=== PATIENT | male | born 1955 | race Caucasian/White ===

== ENCOUNTER 2019-02-12 13:18 | Inpatient (IN) ==
[2019-02-12] MEDS ORDERED: MoRPHine SULFATE 4 MG/ML 1 ML CARP\\VIAL IV PRN (13:39)
[2019-02-12] MEDS ORDERED: ONDANSETRON INJ 2 MG/ML 2 ML VIAL IV STA (13:39)
[2019-02-12] MEDS ORDERED: SODIUM CHLORIDE 0.9% 1000ML 1,000 ML IV SCH (13:45)
--- NOTE | 2019-02-12 13:57 | XRay Report ---
XR chest 1V portable CLINICAL HISTORY: Abdominal pain. COMPARISON STUDY: No previous studies for comparison. FINDINGS: There is mild elevation of the right hemidiaphragm. There is no consolidation or evidence f or pulmonary edema. Cardiac size is normal. Mediastinal contours are normal. Pulmonary vascularity is normal. IMPRESSION: No acute cardiopulmonary findings. Electronically signed by: Tenzin Orantes M.D. 02/12/2019 1:56 PM
[2019-02-12 13:58] LABS: Basophils # (auto) 0.06 K/uL (0-0.2); Basophils % (auto) 0.7 %; Eosinophils % (auto) 4.3 %; Hematocrit (blood only) 40.8 % (42-52); Immature Granulocytes # (auto) 0.01 K/uL (0.00-0.02); Immature Granulocytes % (auto) 0.1 %; Lymphocytes # (auto) 2.68 K/uL (1.2-3.4); Lymphocytes % (auto) 29.1 %; Mean Corpuscular Hgb Conc 36.8 g/dL (32-36); Mean Corpuscular Volume 81.4 fL (80-100); Monocytes # (auto) 0.64 K/uL (0.11-0.59); Neutrophils # (auto) 5.41 K/uL (1.4-6.5); Neutrophils % (auto) 58.8 %; Platelet Count 209 K/uL (130-400); RDW Coefficient of Variation 13.4 % (11.5-14.5); RDW Standard Deviation 39.8 fL (36.4-46.3); Red Blood Count 5.01 M/uL (4.7-6.1)
[2019-02-12 14:12] LABS: iSTAT Hemoglobin 14.3 g/dl (14.0-18.0); iSTAT Ionized Calcium 1.11 mmol/l (1.12-1.32); iSTAT Potassium 2.5 mEq/L (3.3-5.0)
[2019-02-12 14:16] LABS: Albumin Level 4.2 gm/dl (3.4-5.0); BUN Creatinine Ratio 15.5 (10-20); Calcium 9.1 mg/dl (8.5-10.1); Creatinine Clr Calc Pharmacy 80.1 ml/min; Est GFR (African American) 84.8; Est GFR (Non-African American) 73.2; Potassium 2.6 mmol/L (3.5-5.1)
[2019-02-12 14:19] LABS: Albumin Globulin Ratio 1.2 (0.9-2); Bilirubin,Total 0.7 mg/dl (0.2-1); Globulin 3.4 gm/dl (2.5-4.0); Total Protein 7.6 gm/dl (6.4-8.2)
[2019-02-12] MEDS ORDERED: IOVERSOL 100ml IV PRN (14:31)
--- NOTE | 2019-02-12 14:46 | CT Scan Report ---
ABDOMEN AND PELVIS CT WITH IV AND ORAL CONTRAST CT DOSE: 475.59 mGy.cm HISTORY: Acute lower abdominal pain lower pain, recent prostate biposy TECHNIQUE: Multiaxial CT images of the abdomen and pelvis were performed following the use of intrave nous and oral contrast. A dose lowering technique was utilized adhering to the principles of ALARA. COMPARISON STUDY: None. FINDINGS: The lung bases are generally clear. Subcentimeter calcified granuloma of the right middle lobe. No pn eumatosis or pneumoperitoneum. The imaged inferior cardiac chambers are unremarkable. The liver, sple en, gallbladder, pancreas and adrenal glands are unremarkable. No biliary ductal dilation. Patency of the hepatic and portal veins. Kidneys and ureters are unremarkable. Mild wall thickening with partial distention of the urinary elly dder. Prostamegaly. Aorta and IVC are unremarkable. There is no adenopathy. Small hiatal hernia. No b owel obstruction. There is partial distention with wall thickening noted throughout the majority of t he colon. No significant colonic inflammatory stranding. Multiple nondilated fluid-filled loops of sm all bowel. The appendix measures the upper limits of normal at 7 mm and is also fluid-filled without stranding inflammatory change. Minimal nonspecific ill-defined stranding about the left dependent pel vis, image 400 series 3. Soft tissues are unremarkable. Bones appear to be intact. Moderate disc space narrowing at L4-L5. Tra nsitional lumbosacral anatomy with pseudoarticulation of the left L5 transverse process and left sacr al base. There are a few scattered subcentimeter sclerotic foci noted about the pelvis which may refl ect bone islands. IMPRESSION: 1. No bowel obstruction or pneumoperitoneum. 2. Wall thickening throughout the majority of the colon, notably extending from the hepatic flexure t hrough the rectum may be secondary to partial distention versus a nonspecific colitis. Correlate clin ically. 3. Fluid-filled nondilated loops of small bowel may be physiologic or reflect a mild enteritis. Addit ionally, the appendix is fluid-filled measuring within the upper limits of normal without associated periappendiceal stranding to suggest acute inflammation. Correlate clinically. 4. Prostamegaly with findings suggestive of chronic bladder outlet obstruction. 5. Small hiatal hernia. Electronically signed by: Alberto Salamanca M.D. 02/12/2019 2:45 PM
[2019-02-12] MEDS ORDERED: POTASSIUM CHLORIDE 10 MEQ TABCR PO STA ×3 (15:44→19:41)
[2019-02-12 15:48] LABS: Appearance Urine Clear (Clear); Bacteria Urine Automated Negative (Negative); Bilirubin Urine Negative (Negative); Blood Urine 3+ (Negative); Cast Urine Automated 0 /lpf (0-5); Color Urine Yellow; Epithelial Cell Urine Auto 0-5 /lpf (0-5); Glucose Urine UA Negative (Negative); Ketones Urine Negative (Negative); Leukocyte Esterase Urine Trace (Negative); Nitrite Urine Negative (Negative); Protein Urine Negative (Negative); Specific Gravity Urine 1.034 (1.000-1.030); Urobilinogen Urine Negative (Negative); pH Urine 5.5 (4.5-7.5)
[2019-02-12 16:01] LABS: Magnesium 2.2 mg/dl (1.8-2.4)
[2019-02-12] MEDS: POTASSIUM CHLORIDE / WTR 10 MEQ/100 ML PLCT IV SCH ×2 (16:16→17:35)
--- NOTE | 2019-02-12 16:32 | Gastrointestinal Consultation ---
Date of Consultation February 12, 2019 Assessment & Plan (1) Rectal bleedin63 year old male with recent rectal biopsy for elevated PSA who presents through the ED for lower abdominal pain, cramping, diarrhea and BRBPR. He denies personal or family history of IBD/GI malignancy. He is afebrile, without leukocytosis, stable HGB. DDX discussed: infectious colitis, ischemic colitis, IBD vs other - Consider admission for observation - IVF hydration - Check stool culture - Check c.diff - Would recommend AGAINST empiric ABX until c.diff results - Consider bladder scan, nails - Not a candidate for antispasmodics given urinary hx - Trend H&H - Monitor output No current plan for endoscopy. Pt would like to be discharged home as soon as clinically stable. He should have a outpatient colonoscopy with his regular GI in [place]. Thank you for allowing [facility] Please call with any acute changes, questions or concerns. Please see addendum below with additional recommendation from my supervising physician. Present on Admission?: Yes Supervising Physician Co-Signing Physician Notes I have seen and examined the patient and discussed the management with KEVIN Lara. 63 yo male, recent prostate biopsy 1 week ago with antibiotics prior to procedure, visiting the area for a golf outing. Did not feel well- weak, lightheaded, bloody bowel movement x 1, always has chronic diarrhea came to the ER per his friend. No fevers, recent abx use per above, recently eating meatloaf - thinks it was cooked. No reports of ibd personally or per family history. Gets colons every 3 years for polyps. labs reviewed- wbc, hgb stable, K low. CT A/P reviewed- thickening of the colon from hepatic flexure to rectum, prostamegaly with chronic bladder outlet obstruction. Diff - infectious colitis, less likely ischemic given normal vessels seen on contrast ct, less likely ibd given prior colons and no personal history of this, IV fluids C diff, stool culture Hold on empiric abx until c diff is negative Prn immodium Replete electrolytes CLD Outpatient c-scope through normal GI provider Likely admission for 24 hours obs for IV hydration and rule out acute infection. Patient likely wants to go home tomorrow as he has to go back to [place]. Will see tomorrow to assess response to therapy. History of Present Illness Reason for Consultation: rectal bleed, recent prostate bx Requesting Physician: Saad Attending Physician: Saad History of Present Illness 63 year old male here from out of town for a golf tournament who presented through the ED for evaluation of abdominal cramping, bloody diarrhea. Pt was seen and evaluated, chart reviewed. Notes he had recent prostate biopsy due to elevated PSA. He notes he was on three days of ABX prior to bx and continued for a total of five days. Unsure of name of ABX. Last dose was two days ago. Today, developed lower abd cramping, pressure and frequent loose stools. Associated with BRBPR. No clots. No melena. No lightheadedness or dizziness. No fever, chills, CP, SOB. He had a colonoscopy about two years ago w/ multiple polyps. Due next year No personal history of IBD or colon CA No family history of IBD or colon CA CT: No bowel obstruction or pneumoperitoneum.Wall thickening throughout the majority of the colon, notably extending from the hepatic flexure through the rectum may be secondary to partial distention versus a nonspecific colitis. Correlate clinically.Fluid-filled nondilated loops of small bowel may be physiologic or reflect a mild enteritis. Additionally, the appendix is fluid- filled measuring within the upper limits of normal without associated periappendiceal stranding to suggest acute inflammation. Correlate clinically. Prostamegaly with findings suggestive of chronic bladder outlet obstruction. Small hiatal hernia. Allergies Allergy/AdvReac Type Severity Reaction Status Date / Time No Known Allergies Allergy Unverified 02/12/19 15:46 Home Medications Home Medications Medication Instructions Recorded Confirmed Type hydrochlorothiazide 25 mg PO QAM 02/12/19 02/12/19 History levofloxacin 500 mg PO QAM 02/12/19 02/12/19 History lisinopril 20 mg PO QAM 02/12/19 02/12/19 History simvastatin 20 mg PO HS 02/12/19 02/12/19 History Patient History Social History Feels Safe at Home: Yes Smoking Status: Never smoker Review of Systems Constitutional: no fever, no chills and no fatigue Respiratory: no cough, no dyspnea and no dyspnea on exertion Cardiovascular: no chest pain, no radiating jaw, neck or arm pain and no dyspnea on exertion Gastrointestinal: + abdominal pain, + change in bowel habits, + diarrhea/loose stools and + blood in stools; no belching, no early satiety, no hematemesis, no dysphagia, no cramping and no melena Physical Exam Constitutional: well developed and well nourished; no acute distress Neck: trachea midline Respiratory: normal respiratory effort Cardiovascular: RRR, no murmur, no edema Gastrointestinal (Abdomen): Inspection/Auscultation: normal bowel sounds Percussion/Palpation: + abdomen tender (generalized) and abdomen soft; no guarding, abdomen not rigid, no abdominal mass and no ascites Skin: no rashes, warm and dry Results & Data Vital Signs (Past 12 Hours) Vital Signs Temp Pulse Resp BP Pulse Ox 02/12/19 13:54 99 02/12/19 13:24 36.6 C 63 16 190/61 H 99 Laboratory Results 02/12/19 02/12/19 02/12/19 Range/Units 15:20 13:58 13:44 WBC (4.8-10.8) K/uL RBC (4.7-6.1) M/uL Hgb (14.0-18.0) g/dL POC Hgb 14.3 (14.0-18.0) g/dl Hct (42-52) % POC Hct 42 (42-52) % MCV (80-100) fL MCH (25-34) pg MCHC (32-36) g/dL RDW Std Deviation (36.4-46.3) fL RDW Coeff of Aminah (11.5-14.5) % Plt Count (130-400) K/uL MPV (7.4-10.4) fL Immature Gran % (Auto) % Neut % (Auto) % Lymph % (Auto) % Glades % (Auto) % Eos % (Auto) % Baso % (Auto) % Immature Gran # (Auto) (0.00-0.02) K/uL Neut # (Auto) (1.4-6.5) K/uL Lymph # (Auto) (1.2-3.4) K/uL Glades # (Auto) (0.11-0.59) K/uL Eos # (Auto) (0-0.5) K/uL Baso # (Auto) (0-0.2) K/uL PT (9.0-12.0) Seconds INR (0.9-1.1) POC Sodium 140 (135-144) mEq/L Sodium (136-145) mmol/L POC Potassium 2.5 L* (3.3-5.0) mEq/L Potassium (3.5-5.1) mmol/L POC Chloride 99 L (101-112) mEq/L Chloride (98-107) mmol/L Carbon Dioxide (21-32) mmol/L POC Total CO2 22 L (24-31) mEq/l Anion Gap (3-11) POC Anion Gap 23.0 (16-25) mmol/L POC BUN 17 (7-18) mg/dl BUN (7-18) mg/dl Creatinine (0.6-1.4) mg/dl POC Creatinine 1.0 (0.6-1.3) mg/dl Est Cr Clr Drug Dosing ml/min Est GFR ( Amer) Est GFR (Non-Af Amer) BUN/Creatinine Ratio (10-20) Glucose (70-99) mg/dl POC Glucose (other) 120 H (70-99) mg/dl Calcium (8.5-10.1) mg/dl POC Ioniz Calcium Guy 1.11 L (1.12-1.32) mmol/l Magnesium Cancelled (1.8-2.4) mg/dl Total Bilirubin (0.2-1) mg/dl AST (15-37) U/L ALT (12-78) U/L Alkaline Phosphatase (45-117) U/L Total Protein (6.4-8.2) gm/dl Albumin (3.4-5.0) gm/dl Globulin (2.5-4.0) gm/dl Albumin/Globulin Ratio (0.9-2) Lipase (73-393) U/L Urine Color Yellow Urine Appearance Clear (Clear) Urine pH 5.5 (4.5-7.5) Ur Specific Lafe 1.034 H (1.000-1.030) Urine Protein Negative (Negative) Urine Glucose (UA) Negative (Negative) Urine Ketones Negative (Negative) Urine Blood 3+ H (Negative) Urine Nitrite Negative (Negative) Urine Bilirubin Negative (Negative) Urine Urobilinogen Negative (Negative) Ur Leukocyte Esterase Trace H (Negative) Urine WBC (Auto) 1-5 (0-5) /hpf Urine RBC (Auto) 5-10 H (0-4) /hpf U Hyaline Cast (Auto) 0 (0-5) /lpf U Epithel Cells (Auto) 0-5 (0-5) /lpf Urine Bacteria (Auto) Negative (Negative) 02/12/19 02/12/19 02/12/19 Range/Units 13:44 13:44 13:44 WBC 9.20 (4.8-10.8) K/uL RBC 5.01 (4.7-6.1) M/uL Hgb 15.0 (14.0-18.0) g/dL POC Hgb (14.0-18.0) g/dl Hct 40.8 L (42-52) % POC Hct (42-52) % MCV 81.4 (80-100) fL MCH 29.9 (25-34) pg MCHC 36.8 H (32-36) g/dL RDW Std Deviation 39.8 (36.4-46.3) fL RDW Coeff of Aminah 13.4 (11.5-14.5) % Plt Count 209 (130-400) K/uL MPV 10.0 (7.4-10.4) fL Immature Gran % (Auto) 0.1 % Neut % (Auto) 58.8 % Lymph % (Auto) 29.1 % Glades % (Auto) 7.0 % Eos % (Auto) 4.3 % Baso % (Auto) 0.7 % Immature Gran # (Auto) 0.01 (0.00-0.02) K/uL Neut # (Auto) 5.41 (1.4-6.5) K/uL Lymph # (Auto) 2.68 (1.2-3.4) K/uL Glades # (Auto) 0.64 H (0.11-0.59) K/uL Eos # (Auto) 0.40 (0-0.5) K/uL Baso # (Auto) 0.06 (0-0.2) K/uL PT 10.0 (9.0-12.0) Seconds INR 1.0 (0.9-1.1) POC Sodium (135-144) mEq/L Sodium 138 (136-145) mmol/L POC Potassium (3.3-5.0) mEq/L Potassium 2.6 L (3.5-5.1) mmol/L POC Chloride (101-112) mEq/L Chloride 103 (98-107) mmol/L Carbon Dioxide 27 (21-32) mmol/L POC Total CO2 (24-31) mEq/l Anion Gap 8.0 (3-11) POC Anion Gap (16-25) mmol/L POC BUN (7-18) mg/dl BUN 17 (7-18) mg/dl Creatinine 1.08 (0.6-1.4) mg/dl POC Creatinine (0.6-1.3) mg/dl Est Cr Clr Drug Dosing 80.1 ml/min Est GFR ( Amer) 84.8 Est GFR (Non-Af Amer) 73.2 BUN/Creatinine Ratio 15.5 (10-20) Glucose 115 H (70-99) mg/dl POC Glucose (other) (70-99) mg/dl Calcium 9.1 (8.5-10.1) mg/dl POC Ioniz Calcium Guy (1.12-1.32) mmol/l Magnesium 2.2 (1.8-2.4) mg/dl Total Bilirubin 0.7 (0.2-1) mg/dl AST 27 (15-37) U/L ALT 43 (12-78) U/L Alkaline Phosphatase 66 (45-117) U/L Total Protein 7.6 (6.4-8.2) gm/dl Albumin 4.2 (3.4-5.0) gm/dl Globulin 3.4 (2.5-4.0) gm/dl Albumin/Globulin Ratio 1.2 (0.9-2) Lipase 271 (73-393) U/L Urine Color Urine Appearance (Clear) Urine pH (4.5-7.5) Ur Specific Lafe (1.000-1.030) Urine Protein (Negative) Urine Glucose (UA) (Negative) Urine Ketones (Negative) Urine Blood (Negative) Urine Nitrite (Negative) Urine Bilirubin (Negative) Urine Urobilinogen (Negative) Ur Leukocyte Esterase (Negative) Urine WBC (Auto) (0-5) /hpf Urine RBC (Auto) (0-4) /hpf U Hyaline Cast (Auto) (0-5) /lpf U Epithel Cells (Auto) (0-5) /lpf Urine Bacteria (Auto) (Negative)
--- NOTE | 2019-02-12 16:32 | Emergency Department Note ---
Entered by Kenneth Briones acting as a scribe for Trey Nash DO History of Present Illness General Chief complaint: Abdominal Pain Stated complaint: SEVERE CRAMPS,ABD PAIN,DIZZY,NAUSEA,GRAYSON Time Seen by Provider: 02/12/19 13:29 Source: patient History of Present Illness Onset (ago): hour(s) (1.5) Location: abdomen Pain Consistency: + other (persistent) Quality: + other (cramping) Relieved By: + other (bowel movement) Associated symptoms: + other (nausea); no chest pain and no shortness of breath The patient is a 63 year old male who presents to the Emergency Room with complaints of persistent abdominal cramping beginning about 1.5 hours ago. The patient reports that his symptoms began in the lower abdomen and spread to the upper abdomen, and his pain is not worse on either side. He notes that he is still experiencing pain, but it was improved after having a bowel movement in the ER. He states that both of his hands also became clammy, his face felt flushed, and he became nauseous. He denies any chest pain, back pain, shortness of breath, or history of these symptoms. He states that he takes medications for hypertension and HLD. He states that he had a prostate biopsy one week ago for elevated PSA, and he does not know the results. He reports a history of polyps but not diverticulitis/diverticulosis. He notes that he is currently visiting from [place]. He denies smoking or alcohol use. He has not had any other abdominal surgeries. Home Medications Home Medications Medication Instructions Recorded Confirmed Type hydrochlorothiazide 25 mg PO QAM 02/12/19 02/12/19 History levofloxacin 500 mg PO QAM 02/12/19 02/12/19 History lisinopril 20 mg PO QAM 02/12/19 02/12/19 History simvastatin 20 mg PO HS 02/12/19 02/12/19 History Allergies Allergy/AdvReac Type Severity Reaction Status Date / Time No Known Allergies Allergy Unverified 02/12/19 15:46 Past Med/Surg History Medical History Hypokalemia Enlarged prostate History of tobacco use History of wisdom tooth extraction Nephrolithiasis HLD (hyperlipidemia) Hypertension GI bleed Colitis Rectal bleeding Family History Aunt Colorectal cancer Other Dyslipidemia Hypertension Social History Preferred Language: Estonian Communication Ability: Effective Flight Control Manager Required: No Beliefs That Will Affect Care: None marital status: Current Living Situation: Spouse current occupational status: employed current occupation: Construction Other Information That Helps Us Care for You: No Feels Safe at Home: Yes Smoking Status: Former smoker Do You Dip or Chew Tobacco: No Second Hand Expos ure: No Tobacco Cessation Education Requested by Patient: No Hx Alcohol Use: No Hx Substance Use: No Review of Systems See HPI for pertinent positives & negatives. and A total of 10 systems reviewed and were otherwise negative Physical Exam Vital Signs Vital Signs - 24 hr 02/12/19 13:24 02/12/19 13:54 02/12/19 16:42 Temperature 36.6 C Temperature Source Oral Sepsis Recent Fever Within 48 Hours No Sepsis New/Unexplained Change in Mental Status No Sepsis Action Taken by Nursing No Action Required Pulse Rate 63 Pulse Rate [Left] 53 L Respiratory Rate 16 20 Blood Pressure 190/61 H Blood Pressure [Left Arm] 173/75 H Blood Pressure Mean 104 Blood Pressure Mean [Left Arm] 107 Pulse Oximetry 99 99 100 Oxygen Delivery Method Room Air Room Air GENERAL: Patient is awake and alert. He is very anxious and uncomfortable appearing. EYES: The conjunctivae are clear. The pupils are round and reactive. EARS, NOSE, MOUTH AND THROAT: The nose is without any evidence of any deformity. Mucous membranes are moist.Tongue is midline NECK: The neck is nontender and supple. RESPIRATORY: Normal respiratory effort is noted. There is no evidence of wheezing rhonchi or rales to auscultation. CARDIOVASCULAR: Regular rate and rhythm noted. There no murmurs rubs or gallops normal S1 normal S2 GASTROINTESTINAL: The abdomen is mildly distended and diffusely tender. There is guarding in both lower quadrants. MUSCULOSKELETAL/EXTREMITIES: There is no evidence of gross deformity. Full range of motion is noted in the hips and shoulders. SKIN: There is no obvious evidence of any rash. There are no petechiae, pallor or cyanosis noted. NEUROLOGIC: Patient is awake alert and oriented x3. Strength is symmetric. Patellar reflexes are 2+ bilaterally. Course 1338: The patient was evaluated in room B5. A complete history and physical examination were performed. 1550: I updated the patient on current findings. 1614: I consulted [facility]. 1622: I consulted Dr. Berry [facility] Hospitalist. The patient will be reevaluated for hospitalization. Administered Medications Lactated Ringer's (Lr) 1,000 mls @ 125 mls/hr IV .Q8H JORDAN Stop: 03/14/19 18:01 Last Admin: 02/12/19 18:59 Dose: 125 mls/hr Documented by: [id number] Ioversol (Optiray 320 100ml) 94 ml IV ONCE PRN PRN Reason: Interaction Checking Stop: 02/16/19 14:30 Last Admin: 02/12/19 14:32 Dose: 94 ml Documented by: [id number] Discontinued Medications Sodium Chloride (Nss 1000ml) 1,000 mls @ 999 mls/hr IV .Q1H1M JORDAN Stop: 02/12/19 14:45 Last Infusion: 02/12/19 14:52 Dose: 0 mls/hr Documented by: [id number] Admin: 02/12/19 13:49 Dose: 999 mls/hr Documented by: [id number] Potassium Chloride (K Patric / Wtr) 10 meq in 100 mls @ 100 mls/hr IV Q1H JORDAN Stop: 02/12/19 17:44 Last Infusion: 02/12/19 19:00 Dose: 0 mls/hr Documented by: [id number] Admin: 02/12/19 17:35 Dose: 100 mls/hr Documented by: [id number] Infusion: 02/12/19 17:16 Dose: 0 mls/hr Documented by: [id number] Admin: 02/12/19 16:16 Dose: 100 mls/hr Documented by: [id number] Ondansetron HCl (Zofran) 4 mg IV NOW STA Stop: 02/12/19 13:40 Last Admin: 02/12/19 13:49 Dose: 4 mg Documented by: [id number] Potassium Chloride (Klor-Con M10) 20 meq PO NOW STA Stop: 02/12/19 15:45 Last Admin: 02/12/19 16:16 Dose: 20 meq Documented by: [id number] Medical Decision Making Differential Diagnosis Differential diagnosis includes: appendicitis, diverticulitis, PUD, biliary pathology, UTI, pancreatitis, obstruction, mesenteric ischemia, aortic pathology, infections, inflammatory bowel disease, renal colic, as well as others were entertained. Medical Records Attestation: I reviewed the patient's medical records. Home Medications Current Medication List: was personally reviewed by me Laboratory Data Attestation: I reviewed the patient's lab results. Result diagrams: 02/12/19 13:44 02/12/19 13:44 Lab Results 02/12/19 02/12/19 02/12/19 Range/Units 13:44 13:44 13:44 WBC 9.20 (4.8-10.8) K/uL RBC 5.01 (4.7-6.1) M/uL Hgb 15.0 (14.0-18.0) g/dL POC Hgb (14.0-18.0) g/dl Hct 40.8 L (42-52) % POC Hct (42-52) % MCV 81.4 (80-100) fL MCH 29.9 (25-34) pg MCHC 36.8 H (32-36) g/dL RDW Std Deviation 39.8 (36.4-46.3) fL RDW Coeff of Aminah 13.4 (11.5-14.5) % Plt Count 209 (130-400) K/uL MPV 10.0 (7.4-10.4) fL Immature Gran % (Auto) 0.1 % Neut % (Auto) 58.8 % Lymph % (Auto) 29.1 % [place] % (Auto) 7.0 % Eos % (Auto) 4.3 % Baso % (Auto) 0.7 % Immature Gran # (Auto) 0.01 (0.00-0.02) K/uL Neut # (Auto) 5.41 (1.4-6.5) K/uL Lymph # (Auto) 2.68 (1.2-3.4) K/uL [place] # (Auto) 0.64 H (0.11-0.59) K/uL Eos # (Auto) 0.40 (0-0.5) K/uL Baso # (Auto) 0.06 (0-0.2) K/uL PT 10.0 (9.0-12.0) Seconds INR 1.0 (0.9-1.1) POC Sodium (135-144) mEq/L Sodium 138 (136-145) mmol/L POC Potassium (3.3-5.0) mEq/L Potassium 2.6 L (3.5-5.1) mmol/L POC Chloride (101-112) mEq/L Chloride 103 (98-107) mmol/L Carbon Dioxide 27 (21-32) mmol/L POC Total CO2 (24-31) mEq/l Anion Gap 8.0 (3-11) POC Anion Gap (16-25) mmol/L POC BUN (7-18) mg/dl BUN 17 (7-18) mg/dl Creatinine 1.08 (0.6-1.4) mg/dl POC Creatinine (0.6-1.3) mg/dl Est Cr Clr Drug Dosing 80.1 ml/min Est GFR ( Amer) 84.8 Est GFR (Non-Af Amer) 73.2 BUN/Creatinine Ratio 15.5 (10-20) Glucose 115 H (70-99) mg/dl POC Glucose (other) (70-99) mg/dl Calcium 9.1 (8.5-10.1) mg/dl POC Ioniz Calcium Guy (1.12-1.32) mmol/l Magnesium 2.2 (1.8-2.4) mg/dl Total Bilirubin 0.7 (0.2-1) mg/dl AST 27 (15-37) U/L ALT 43 (12-78) U/L Alkaline Phosphatase 66 (45-117) U/L Total Protein 7.6 (6.4-8.2) gm/dl Albumin 4.2 (3.4-5.0) gm/dl Globulin 3.4 (2.5-4.0) gm/dl Albumin/Globulin Ratio 1.2 (0.9-2) Lipase 271 (73-393) U/L Urine Color Urine Appearance (Clear) Urine pH (4.5-7.5) Ur Specific [place] (1.000-1.030) Urine Protein (Negative) Urine Glucose (UA) (Negative) Urine Ketones (Negative) Urine Blood (Negative) Urine Nitrite (Negative) Urine Bilirubin (Negative) Urine Urobilinogen (Negative) Ur Leukocyte Esterase (Negative) Urine WBC (Auto) (0-5) /hpf Urine RBC (Auto) (0-4) /hpf U Hyaline Cast (Auto) (0-5) /lpf U Epithel Cells (Auto) (0-5) /lpf Urine Bacteria (Auto) (Negative) Stl C. diff Tox B Gene (Neg) 02/12/19 02/12/19 02/12/19 Range/Units 13:44 13:58 15:20 WBC (4.8-10.8) K/uL RBC (4.7-6.1) M/uL Hgb (14.0-18.0) g/dL POC Hgb 14.3 (14.0-18.0) g/dl Hct (42-52) % POC Hct 42 (42-52) % MCV (80-100) fL MCH (25-34) pg MCHC (32-36) g/dL RDW Std Deviation (36.4-46.3) fL RDW Coeff of Aminah (11.5-14.5) % Plt Count (130-400) K/uL MPV (7.4-10.4) fL Immature Gran % (Auto) % Neut % (Auto) % Lymph % (Auto) % [place] % (Auto) % Eos % (Auto) % Baso % (Auto) % Immature Gran # (Auto) (0.00-0.02) K/uL Neut # (Auto) (1.4-6.5) K/uL Lymph # (Auto) (1.2-3.4) K/uL [place] # (Auto) (0.11-0.59) K/uL Eos # (Auto) (0-0.5) K/uL Baso # (Auto) (0-0.2) K/uL PT (9.0-12.0) Seconds INR (0.9-1.1) POC Sodium 140 (135-144) mEq/L Sodium (136-145) mmol/L POC Potassium 2.5 L* (3.3-5.0) mEq/L Potassium (3.5-5.1) mmol/L POC Chloride 99 L (101-112) mEq/L Chloride (98-107) mmol/L Carbon Dioxide (21-32) mmol/L POC Total CO2 22 L (24-31) mEq/l Anion Gap (3-11) POC Anion Gap 23.0 (16-25) mmol/L POC BUN 17 (7-18) mg/dl BUN (7-18) mg/dl Creatinine (0.6-1.4) mg/dl POC Creatinine 1.0 (0.6-1.3) mg/dl Est Cr Clr Drug Dosing ml/min Est GFR ( Amer) Est GFR (Non-Af Amer) BUN/Creatinine Ratio (10-20) Glucose (70-99) mg/dl POC Glucose (other) 120 H (70-99) mg/dl Calcium (8.5-10.1) mg/dl POC Ioniz Calcium Guy 1.11 L (1.12-1.32) mmol/l Magnesium Cancelled (1.8-2.4) mg/dl Total Bilirubin (0.2-1) mg/dl AST (15-37) U/L ALT (12-78) U/L Alkaline Phosphatase (45-117) U/L Total Protein (6.4-8.2) gm/dl Albumin (3.4-5.0) gm/dl Globulin (2.5-4.0) gm/dl Albumin/Globulin Ratio (0.9-2) Lipase (73-393) U/L Urine Color Yellow Urine Appearance Clear (Clear) Urine pH 5.5 (4.5-7.5) Ur Specific [place] 1.034 H (1.000-1.030) Urine Protein Negative (Negative) Urine Glucose (UA) Negative (Negative) Urine Ketones Negative (Negative) Urine Blood 3+ H (Negative) Urine Nitrite Negative (Negative) Urine Bilirubin Negative (Negative) Urine Urobilinogen Negative (Negative) Ur Leukocyte Esterase Trace H (Negative) Urine WBC (Auto) 1-5 (0-5) /hpf Urine RBC (Auto) 5-10 H (0-4) /hpf U Hyaline Cast (Auto) 0 (0-5) /lpf U Epithel Cells (Auto) 0-5 (0-5) /lpf Urine Bacteria (Auto) Negative (Negative) Stl C. diff Tox B Gene (Neg) 02/12/19 Range/Units 16:40 WBC (4.8-10.8) K/uL RBC (4.7-6.1) M/uL Hgb (14.0-18.0) g/dL POC Hgb (14.0-18.0) g/dl Hct (42-52) % POC Hct (42-52) % MCV (80-100) fL MCH (25-34) pg MCHC (32-36) g/dL RDW Std Deviation (36.4-46.3) fL RDW Coeff of Aminah (11.5-14.5) % Plt Count (130-400) K/uL MPV (7.4-10.4) fL Immature Gran % (Auto) % Neut % (Auto) % Lymph % (Auto) % [place] % (Auto) % Eos % (Auto) % Baso % (Auto) % Immature Gran # (Auto) (0.00-0.02) K/uL Neut # (Auto) (1.4-6.5) K/uL Lymph # (Auto) (1.2-3.4) K/uL [place] # (Auto) (0.11-0.59) K/uL Eos # (Auto) (0-0.5) K/uL Baso # (Auto) (0-0.2) K/uL PT (9.0-12.0) Seconds INR (0.9-1.1) POC Sodium (135-144) mEq/L Sodium (136-145) mmol/L POC Potassium (3.3-5.0) mEq/L Potassium (3.5-5.1) mmol/L POC Chloride (101-112) mEq/L Chloride (98-107) mmol/L Carbon Dioxide (21-32) mmol/L POC Total CO2 (24-31) mEq/l Anion Gap (3-11) POC Anion Gap (16-25) mmol/L POC BUN (7-18) mg/dl BUN (7-18) mg/dl Creatinine (0.6-1.4) mg/dl POC Creatinine (0.6-1.3) mg/dl Est Cr Clr Drug Dosing ml/min Est GFR ( Amer) Est GFR (Non-Af Amer) BUN/Creatinine Ratio (10-20) Glucose (70-99) mg/dl POC Glucose (other) (70-99) mg/dl Calcium (8.5-10.1) mg/dl POC Ioniz Calcium Guy (1.12-1.32) mmol/l Magnesium (1.8-2.4) mg/dl Total Bilirubin (0.2-1) mg/dl AST (15-37) U/L ALT (12-78) U/L Alkaline Phosphatase (45-117) U/L Total Protein (6.4-8.2) gm/dl Albumin (3.4-5.0) gm/dl Globulin (2.5-4.0) gm/dl Albumin/Globulin Ratio (0.9-2) Lipase (73-393) U/L Urine Color Urine Appearance (Clear) Urine pH (4.5-7.5) Ur Specific [place] (1.000-1.030) Urine Protein (Negative) Urine Glucose (UA) (Negative) Urine Ketones (Negative) Urine Blood (Negative) Urine Nitrite (Negative) Urine Bilirubin (Negative) Urine Urobilinogen (Negative) Ur Leukocyte Esterase (Negative) Urine WBC (Auto) (0-5) /hpf Urine RBC (Auto) (0-4) /hpf U Hyaline Cast (Auto) (0-5) /lpf U Epithel Cells (Auto) (0-5) /lpf Urine Bacteria (Auto) (Negative) Stl C. diff Tox B Gene Negative Cdiff Gene (Neg) Imaging Data Radiologist's Impression: Radiology results as stated below per my review and the radiologist's interpretation: ABDOMEN AND PELVIS CT WITH IV AND ORAL CONTRAST CT DOSE: 475.59 mGy.cm HISTORY: Acute lower abdominal pain lower pain, recent prostate biposy TECHNIQUE: Multiaxial CT images of the abdomen and pelvis were performed following the use of intravenous and oral contrast. A dose lowering technique was utilized adhering to the principles of ALARA. COMPARISON STUDY: None. FINDINGS: The lung bases are generally clear. Subcentimeter calcified granuloma of the right middle lobe. No pneumatosis or pneumoperitoneum. The imaged inferior cardiac chambers are unremarkable. The liver, spleen, gallbladder, pancreas and adrenal glands are unremarkable. No biliary ductal dilation. Patency of the hepatic and portal veins. Kidneys and ureters are unremarkable. Mild wall thickening with partial distention of the urinary bladder. Prostamegaly. Aorta and IVC are unremarkable. There is no adenopathy. Small hiatal hernia. No bowel obstruction. There is partial distention with wall thickening noted throughout the majority of the colon. No significant colonic inflammatory stranding. Multiple nondilated fluid- filled loops of small bowel. The appendix measures the upper limits of normal at 7 mm and is also fluid-filled without stranding inflammatory change. Minimal nonspecific ill-defined stranding about the left dependent pelvis, image 400 series 3. Soft tissues are unremarkable. Bones appear to be intact. Moderate disc space narrowing at L4-L5. Transitional lumbosacral anatomy with pseudoarticulation of the left L5 transverse process and left sacral base. There are a few scattered subcentimeter sclerotic foci noted about the pelvis which may reflect bone islands. IMPRESSION: 1. No bowel obstruction or pneumoperitoneum. 2. Wall thickening throughout the majority of the colon, notably extending from the hepatic flexure through the rectum may be secondary to partial distention versus a nonspecific colitis. Correlate clinically. 3. Fluid-filled nondilated loops of small bowel may be physiologic or reflect a mild enteritis. Additionally, the appendix is fluid-filled measuring within the upper limits of normal without associated periappendiceal stranding to suggest acute inflammation. Correlate clinically. 4. Prostamegaly with findings suggestive of chronic bladder outlet obstruction. 5. Small hiatal hernia. Electronically signed by: Alberto Salamanca M.D. 02/12/2019 2:45 PM XR chest 1V portable CLINICAL HISTORY: Abdominal pain. COMPARISON STUDY: No previous studies for comparison. FINDINGS: There is mild elevation of the right hemidiaphragm. There is no consolidation or evidence for pulmonary edema. Cardiac size is normal. Mediastinal contours are normal. Pulmonary vascularity is normal. IMPRESSION: No acute cardiopulmonary findings. Electronically signed by: Tenzin Orantes M.D. 02/12/2019 1:56 PM Blood Pressure Blood Pressure Findings: Elevated blood pressure Blood Pressure Disposition: further management by hospitalist DILLAN Price The patient is a 63-year-old male who presented to the emergency department for an evaluation of crampy abdominal pain. The patient had very significant abdominal tenderness on palpation. The patient was treated with IV fluids in the emergency department. I discussed the patient's laboratory and radiographic studies with him. He was found to have significant colitis on CT the abdomen and pelvis. He then proceeded to have multiple episodes of blood per rectum. I do feels overall condition is likely consistent with a colitis. I am unsure if it is inflammatory versus infectious at this time. Stool studies were ordered. He was also treated with potassium replacement. I discussed his case with the on-call gastroenterology group. I also discussed his case with the on-call [facility] hospitalist. They have agreed to evaluate the patient in the emergency department for further management and disposition. Impression & Plan Lower GI bleed, Hypokalemia, Colitis, Abdominal pain Discharge Plan Visit Data *Final* Discharge Date/Time: 02/12/19 17:45 Chief Complaint: Abdominal Pain Stated Complaint: SEVERE CRAMPS,ABD PAIN,DIZZY,NAUSEA,GRAYSON ED Provider: Trey Nash Discharge Problem: Lower GI bleed, Hypokalemia, Colitis, Abdominal pain Patient Disposition: Admitted As Inpatient Discharge Instructions Interventions: ED Discharge Assessment Last Done: 02/12/19 17:45 Discharge Problem: Abdominal pain Qualifiers: Abdominal location: unspecified location Qualified Code(s): R10.9 - Unspecified abdominal pain The poojaibe's documentation has been prepared under my direction and personally reviewed by me in its entirety. I confirm that the note above accurately reflects all work, treatment, procedures, and medical decision making performed by me.
--- NOTE | 2019-02-12 16:39 | History & Physical Report ---
Date of Service February 12, 2019 Assessment & Plan (1) Colitis: (2) GI bleed: - Admit to [facility] telemetry - Hemoglobin of 15, recheck H&H at 2100. Blood consent to be obtained by physician if needed. - C. diff culture in process, will add Giardia culture as well - Continue lactated Ringer's at 125 mL/h - Start on cipro and flagyl IV - HIM consulted for request of previous GI records, last colonoscopy was 2 years ago. Follows with [facility] in [place], [place] - Not taking NSAIDs, no significant etoh use (drinks 1 beer every 3-4 weeks), no history of gastric ulcers. - Consult GI - appreciate recs (3) Hypokalemia: - K+ = 2.5 upon presentation to ER - Supplementation with IV n.p.o. ordered - Recheck at 2100 along with Hgb and HCT (4) Hypertension: -BP elevated 173/75 - likely partially due to pain -Continue hydrochlorothiazide and lisinopril (5) HLD (hyperlipidemia): -Continue simvastatin (6) Nephrolithiasis: -History of such, no history of stones in the past 10 years. (7) History of tobacco use: -7 years while patient was in college, age [age]. Smokes a cigar approximately once every 3 months - cessation encouraged. (8) Enlarged prostate: - History of biopsy completed 1 week ago. Unknown results. - Levaquin x3 days and finished last dose on Friday s/p bx - Unlikely that antibiotic use would cause proliferation of C. difficile however not impossible, follow culture results - Follows with Dr. Goldman at [facility] - Bladder scan prn. Consider nails if retaining. Follow I/Os. (9) DVT prophylaxis: -Teds, ambulatory, no chemical prophylaxis in the setting of GI bleed History of Present Illness Primary Care Provider: NO PCP This is a 63-year-old male with past medical history of HTN, HLD, polyposis, nephrolithiasis, colitis. Patient presents to our ER today with acute onset of lower abdominal cramping, abdominal pain, diarrhea x4 today, and BRBPR. He reports never having a GI bleed like this in the past. Of note the patient had a biopsy of the prostate 1 week ago, and took Levaquin x 3 days, last dose was 02/07/2019 because of prostamegaly. Patient notes that he initially had some blood in urine however does not see that any longer, but does have blood in semen. The patient denies any fevers, chills or sweats. He denies any recent sick contacts, consumption of raw or undercooked foods. He notes that certain foods do exacerbate abdominal discomfort and diarrhea as such as chocolate, small fruit like berries and processed foods; therefore he attempts to avoid these things. Patient denies consuming any of this recently. Hemoglobin is stable at 15 Potassium is significantly depressed at 2.5, IV and p.o. supplementation have been provided in the ER GI has already seen the patient as consultation in the ER. Allergies Allergy/AdvReac Type Severity Reaction Status Date / Time No Known Allergies Allergy Unverified 02/12/19 15:46 Home Medications Home Medications Medication Instructions Recorded Confirmed Type hydrochlorothiazide 25 mg PO QAM 02/12/19 02/12/19 History levofloxacin 500 mg PO QAM 02/12/19 02/12/19 History lisinopril 20 mg PO QAM 02/12/19 02/12/19 History simvastatin 20 mg PO HS 02/12/19 02/12/19 History Past Med/Surg History Medical History Hypokalemia Enlarged prostate History of tobacco use History of wisdom tooth extraction Nephrolithiasis HLD (hyperlipidemia) Hypertension GI bleed Colitis Rectal bleeding Family History Aunt Colorectal cancer Other Dyslipidemia Hypertension Social History Preferred Language: Belarusian Communication Ability: Effective Customer Success Advocate Required: No Beliefs That Will Affect Care: None marital status: Current Living Situation: Spouse current occupational status: employed current occupation: Construction Other Information That Helps Us Care for You: No Feels Safe at Home: Yes Smoking Status: Former smoker Do You Dip or Chew Tobacco: No Second Hand Exposure: No Tobacco Cessation Education Requested by Patient: No Hx Alcohol Use: No Hx Substance Use: No Review of Systems Review of Systems: Constitutional: No fever, sweats or chills Eyes: No diplopia, no worsening or blurred vision ENT: normal hearing, no trouble swallowing Respiratory: No cough, sputum, dyspnea at rest or on exertion Cardiovascular: No chest pain, tightness or palpitations Abdomen: As per HPI Musculoskeletal: No joint pain, calf pain, swelling Neurologic: No weakness, numbness/tingling, or balance problems Psychiatric: No anxiety or depression Skin: No rash or itch Physical Exam Physical Exam: General: awake, alert, no apparent distress Head: Normocephalic, atraumatic ENT: PERRL, EOMI, no pharyngeal exudate, mucous membranes moist Chest: Clear to auscultation, on room air, no adventitious breath sounds Cardiac: Regular rate and rhythm, no murmur, no JVD, normal peripheral pulses, good capillary refill Abdominal: NABS x 4 quadrants, soft, nondistended, tender to palpation in LLQ, + guarding Extremities: Normal inspection, no peripheral edema or erythema, calfs nontender to palpation Psych: Normal mood and affect Neuro: AAO x 3, strength intact bilaterally and related 5/5, no motor deficits, speech is clear, no peripheral sensory deficits Results & Data Vital Signs (Past 12 Hours) Vital Signs Temp Pulse Resp BP Pulse Ox 02/12/19 13:54 99 02/12/19 13:24 36.6 C 63 16 190/61 H 99 Diagnostic Findings ABDOMEN AND PELVIS CT WITH IV AND ORAL CONTRAST CT DOSE: 475.59 mGy.cm HISTORY: Acute lower abdominal pain lower pain, recent prostate biposy TECHNIQUE: Multiaxial CT images of the abdomen and pelvis were performed following the use of intravenous and oral contrast. A dose lowering technique was utilized adhering to the principles of ALARA. COMPARISON STUDY: None. FINDINGS: The lung bases are generally clear. Subcentimeter calcified granuloma of the right middle lobe. No pneumatosis or pneumoperitoneum. The imaged inferior cardiac chambers are unremarkable. The liver, spleen, gallbladder, pancreas and adrenal glands are unremarkable. No biliary ductal dilation. Patency of the hepatic and portal veins. Kidneys and ureters are unremarkable. Mild wall thickening with partial distention of the urinary bladder. Prostamegaly. Aorta and IVC are unremarkable. There is no adenopathy. Small hiatal hernia. No bowel obstruction. There is partial distention with wall thickening noted throughout the majority of the colon. No significant colonic inflammatory stranding. Multiple nondilated fluid- filled loops of small bowel. The appendix measures the upper limits of normal at 7 mm and is also fluid-filled without stranding inflammatory change. Minimal nonspecific ill-defined stranding about the left dependent pelvis, image 400 series 3. Soft tissues are unremarkable. Bones appear to be intact. Moderate disc space narrowing at L4-L5. Transitional lumbosacral anatomy with pseudoarticulation of the left L5 transverse process and left sacral base. There are a few scattered subcentimeter sclerotic foci noted about the pelvis which may reflect bone islands. IMPRESSION: 1. No bowel obstruction or pneumoperitoneum. 2. Wall thickening throughout the majority of the colon, notably extending from the hepatic flexure through the rectum may be secondary to partial distention versus a nonspecific colitis. Correlate clinically. 3. Fluid-filled nondilated loops of small bowel may be physiologic or reflect a mild enteritis. Additionally, the appendix is fluid-filled measuring within the upper limits of normal without associated periappendiceal stranding to suggest acute inflammation. Correlate clinically. 4. Prostamegaly with findings suggestive of chronic bladder outlet obstruction. 5. Small hiatal hernia. XR chest 1V portable CLINICAL HISTORY: Abdominal pain. COMPARISON STUDY: No previous studies for comparison. FINDINGS: There is mild elevation of the right hemidiaphragm. There is no consolidation or evidence for pulmonary edema. Cardiac size is normal. Mediastinal contours are normal. Pulmonary vascularity is normal. IMPRESSION: No acute cardiopulmonary findings. Code Status & VTE Plan Code Status Full code Supervising Physician Co-Signing Physician Notes The patient was seen and examined by me and I agree with the assessment and plan done by Cleopatra Lopez PA-C. He appears to have an infectious enteritis producing some lower GI bleeding. He is hemodynamically stable. He does not appear septic. Lungs are clear. Heart rhythm is regular. Abdomen is soft and nondistended with active bowel sounds. He has mild diffuse tenderness. No rebound or guarding. No leukocytosis. He had a very short course of Levaquin several days ago after a prostate biopsy. He does not appear to have C. difficile enteritis but this remains in the differential diagnosis. He drinks city water but is a frequent hiker and does drink water from streams while hiking but uses a filter. Nevertheless, Giardia test has been ordered. He will be treated with intravenous Cipro and Flagyl for the time being. Gastroenterology consultation has been requested. PG Care Time/CCT Total # of Minutes Spent Total Time Spent with Patient: Total time spent is greater than 50% in coordination of care (as documented) at patient's floor/unit and/or counseling patient:
[2019-02-12] MEDS ORDERED: ACETAMINOPHEN 325 MG TAB PO PRN (18:02)
[2019-02-12] MEDS ORDERED: ONDANSETRON INJ 2 MG/ML 2 ML VIAL IV PRN (18:02)
[2019-02-12] MEDS ORDERED: MoRPHine SULFATE 2 MG/ML CARP IV PRN (18:02)
[2019-02-12] MEDS: LACTATED RINGER'S 1,000 ML IV SCH (18:59)
[2019-02-12] MEDS: metroNIDAZOLE 500 MG/100 ML BAG IV SCH (20:07)
[2019-02-12] MEDS: CIPROFLOXACIN 400 MG/200 ML BAG IV SCH (20:08)
[2019-02-12] MEDS: SIMVASTATIN 20 MG TAB PO SCH (20:28)
[2019-02-13] MEDS: metroNIDAZOLE 500 MG/100 ML BAG IV SCH ×3 (02:21→18:11)
[2019-02-13] MEDS: LACTATED RINGER'S 1,000 ML IV SCH ×3 (05:50→18:11)
[2019-02-13] MEDS: CIPROFLOXACIN 400 MG/200 ML BAG IV SCH ×2 (05:50→18:11)
[2019-02-13 06:25] LABS: Hematocrit (blood only) 39.1 % (42-52); Hemoglobin 13.7 g/dL (14.0-18.0); Mean Platelet Volume 10.3 fL (7.4-10.4); Platelet Count 156 K/uL (130-400); RDW Coefficient of Variation 13.6 % (11.5-14.5); Red Blood Count 4.71 M/uL (4.7-6.1); White Blood Count 9.97 K/uL (4.8-10.8)
[2019-02-13 06:57] LABS: Albumin Globulin Ratio 1.2 (0.9-2); Albumin Level 3.5 gm/dl (3.4-5.0); BUN Creatinine Ratio 9.6 (10-20); Bilirubin,Total 1.1 mg/dl (0.2-1); Calcium 8.5 mg/dl (8.5-10.1); Creatinine Clr Calc Pharmacy 80.9 ml/min; Est GFR (African American) 85.8; Globulin 2.9 gm/dl (2.5-4.0); Magnesium 2.2 mg/dl (1.8-2.4); Phosphorus 2.5 mg/dl (2.5-4.9); Potassium 3.4 mmol/L (3.5-5.1); Total Protein 6.4 gm/dl (6.4-8.2)
[2019-02-13] MEDS: LISINOPRIL 20 MG TAB PO SCH (08:34)
[2019-02-13] MEDS ORDERED: hydroCHLOROthiazide 25 MG TAB PO SCH (09:00)
[2019-02-13] MEDS ORDERED: POTASSIUM CHLORIDE 20 MEQ TABCR PO ONE (09:15)
--- NOTE | 2019-02-13 09:28 | Gastroenterology Progress Note ---
Date of Service February 13, 2019 Supervising Physician Co-Signing Physician Notes LGI bleeding with cramping - imaging c/w sub-total colitis. Slight fluctuations in K likely from underlying colitis. Presumed infectious colitis - not c diff. On cipro/flagyl. Per GI perspective - he is tolerating po with mild nausea and some belly crampy and he wants to go home - it is ok to dc from GI perspective with close follow- up by his local GI provider. Would avoid Bentyl given abdominal cramping given imaging suggestive of a bladder obstruction. Would treat as infectious colitis with a 7-10 day course of cipro or levofloxacin and flagyl. Further follow-up with his local provider in [place] in 4-6 weeks for potential colonoscopy for further evaluation of subtotal colitis found on imaging. Supplemental K tabs. Prn anti-nausea. All of this was discussed with him and his at bedside. Subjective No acute complaints Lying in bed with his at bedside Reports one bloody bowel movement overnite Still mild abdominal cramping, mild nausea Still wants to go home Review of Systems Review of Systems: All systems reviewed & are unremarkable except as noted in HPI & below Physical Exam Physical Exam: No acute distress Eyes: PERRL, conjunctivae normal, anicteric sclerae Gastrointestinal (Abdomen): normal bowel sounds, soft, nontender, no hepatosplenomegaly Skin: No rashes Psychiatric: A+Ox3, euthymic affect Results & Data Vital Signs (Past 12 Hours) Vital Signs Temp Pulse Resp BP Pulse Ox 02/13/19 06:57 36.5 C 51 L 16 146/66 H 97 02/13/19 04:41 37.1 C 49 L 18 144/67 H 96 02/13/19 00:14 37.2 C 55 L 18 141/61 H 97 Hgb remains stable essentially K is 3.4 Bun normal
--- NOTE | 2019-02-13 14:53 | Hospitalist Progress Note ---
Date of Service February 13, 2019 Assessment & Plan (1) GI bleed: With rectal bleeding secondary to colitis as below Hemoglobin with mild drop from 15.0 down to 13.7 today, some of which may be hemo-dilutional from IV fluids He is hemodynamically stable - Continue lactated Ringer's at 125 mL/h -Follow CBC in the morning -GI does not need to perform endoscopy -He should have colonoscopy in 6 to 8 weeks after his colitis is resolved (2) Colitis: Subtotal colitis seen on imaging with CT along with mild small bowel enteritis With bloody diarrhea and crampy lower abdominal pain Gastroenterology saw the patient and does not think this is consistent with ischemic colitis and is most likely infectious colitis With positive fecal leukocytes, stool culture pending but negative to date C. difficile toxin negative Most likely infectious. He did eat and multiple fast food restaurants and his recent travels -Continue Cipro and Flagyl and will complete a 10-day course -Continue to follow-up on stool culture, Yersinia and Giardia pending -Appreciate GI consultation -Advance diet to low fiber today and tolerating so far -Continue IV fluids -Continue pain control as needed with morphine and acetaminophen -Will need colonoscopy in 6 to 8 weeks as above (3) Hypokalemia: - K+ = 2.5 upon presentation to ER and now improved but remains mildly low at 3.4 after replacement -Give potassium chloride 40 mEq p.o. x1 -Follow BMP in the morning (4) Hypertension: -BP elevated initially likely secondary to pain and is now improved -Continue lisinopril but will hold hydrochlorothiazide while he is receiving IV fluids for hydration with poor p.o. intake recently (5) HLD (hyperlipidemia): -Continue simvastatin (6) Nephrolithiasis: -With a remote history of such, no history of stones in the past 10 years. (7) Enlarged prostate: - History of biopsy completed 1 week ago. Pathology reports show possible atypical cells -He took Levaquin x3 days and finished last dose on Friday s/p bx -Does have some microscopic hematuria which would be expected but no gross hematuria - Follows with Dr. Goldman at [facility]-he has a follow- up visit this coming Friday when he returns to [place] - Bladder scan prn (8) DVT prophylaxis: -Teds, ambulatory, no chemical prophylaxis in the setting of GI bleed Disposition-remain on PCU overnight for further monitoring and treatment of colitis with continued GI bleeding Subjective Patient was seen twice today, first in the morning and then later in the afternoon. He continues to have bloody bowel movements but the stool is getting more formed. He continues to have lower abdominal cramping. Denies nausea or vomiting. Denies chest pain shortness of breath. He is making urine. He was a dvanced on his diet to low fiber today and did tolerate lunch without an increase in his abdominal pain. Telemetry with sinus bradycardia with rates in the 40s to 50s which he states is normal for him. He reports that he ate at multiple fast food restaurants in his travels from [place] to [place] 2 days ago. Review of Systems Review of Systems: All systems reviewed & are unremarkable except as noted in HPI & below Physical Exam Constitutional: well developed and + ill appearing; no acute distress Eyes: PERRL, conjunctivae normal, anicteric sclerae ENMT: external ear and nose normal, oropharynx normal Neck: trachea midline, no thyromegaly Respiratory: normal respiratory effort, lungs clear to auscultation Cardiovascular: RRR, no murmur, no edema Gastrointestinal (Abdomen): Inspection/Auscultation: abdomen normal to inspection and normal bowel sounds; abdomen not distended Percussion/Palpation: + abdomen tender (Tender to palpation in the left greater than right lower quadrants without guarding or rebound tenderness) and abdomen soft; no guarding, abdomen not rigid, no hepatosplenomegaly and no hernia Musculoskeletal: Extremities: extremities normal to inspection; no cyanosis and no clubbing Skin: no rashes, warm and dry Neurologic: moves all extremities and awake; no focal motor deficits Psychiatric: A+Ox3, euthymic affect Results & Data Vital Signs (Past 12 Hours) Vital Signs Temp Pulse Resp BP BP Pulse Ox 02/13/19 11:40 37.0 C 56 L 16 156/57 H 98 02/13/19 06:57 36.5 C 51 L 16 146/66 H 97 02/13/19 04:41 37.1 C 49 L 18 144/67 H 96 Laboratory Results 02/13/19 02/13/19 02/13/19 Range/Units 06:07 06:07 06:07 WBC 9.97 (4.8-10.8) K/uL RBC 4.71 (4.7-6.1) M/uL Hgb 13.7 L (14.0-18.0) g/dL Hct 39.1 L (42-52) % MCV 83.0 (80-100) fL MCH 29.1 (25-34) pg MCHC 35.0 (32-36) g/dL RDW Std Deviation 41.0 (36.4-46.3) fL RDW Coeff of Aminah 13.6 (11.5-14.5) % Plt Count 156 (130-400) K/uL MPV 10.3 (7.4-10.4) fL Sodium 142 (136-145) mmol/L Potassium 3.4 L (3.5-5.1) mmol/L Chloride 109 H (98-107) mmol/L Carbon Dioxide 29 (21-32) mmol/L Anion Gap 4.0 (3-11) BUN 10 D (7-18) mg/dl Creatinine 1.07 (0.6-1.4) mg/dl Est Cr Clr Drug Dosing 80.9 ml/min Est GFR ( Amer) 85.8 Est GFR (Non-Af Amer) 74.0 BUN/Creatinine Ratio 9.6 L (10-20) Glucose 104 H (70-99) mg/dl Calcium 8.5 (8.5-10.1) mg/dl Phosphorus 2.5 (2.5-4.9) mg/dl Magnesium 2.2 (1.8-2.4) mg/dl Total Bilirubin 1.1 H D (0.2-1) mg/dl AST 19 (15-37) U/L ALT 33 (12-78) U/L Alkaline Phosphatase 57 (45-117) U/L Total Protein 6.4 (6.4-8.2) gm/dl Albumin 3.5 (3.4-5.0) gm/dl Globulin 2.9 (2.5-4.0) gm/dl Albumin/Globulin Ratio 1.2 (0.9-2) Giardia Antigen Hepatitis C Ab Screen Neg (Neg) 02/12/19 02/12/19 02/12/19 Range/Units 22:30 20:47 20:47 WBC (4.8-10.8) K/uL RBC (4.7-6.1) M/uL Hgb 14.1 (14.0-18.0) g/dL Hct (42-52) % MCV (80-100) fL MCH (25-34) pg MCHC (32-36) g/dL RDW Std Deviation (36.4-46.3) fL RDW Coeff of Aminah (11.5-14.5) % Plt Count (130-400) K/uL MPV (7.4-10.4) fL Sodium (136-145) mmol/L Potassium 3.1 L D (3.5-5.1) mmol/L Chloride (98-107) mmol/L Carbon Dioxide (21-32) mmol/L Anion Gap (3-11) BUN (7-18) mg/dl Creatinine (0.6-1.4) mg/dl Est Cr Clr Drug Dosing ml/min Est GFR ( Amer) Est GFR (Non-Af Amer) BUN/Creatinine Ratio (10-20) Glucose (70-99) mg/dl Calcium (8.5-10.1) mg/dl Phosphorus (2.5-4.9) mg/dl Magnesium (1.8-2.4) mg/dl Total Bilirubin (0.2-1) mg/dl AST (15-37) U/L ALT (12-78) U/L Alkaline Phosphatase (45-117) U/L Total Protein (6.4-8.2) gm/dl Albumin (3.4-5.0) gm/dl Globulin (2.5-4.0) gm/dl Albumin/Globulin Ratio (0.9-2) Giardia Antigen Pending Hepatitis C Ab Screen (Neg) 02/12/19 Range/Units 20:47 WBC (4.8-10.8) K/uL RBC (4.7-6.1) M/uL Hgb (14.0-18.0) g/dL Hct 38.6 L (42-52) % MCV (80-100) fL MCH (25-34) pg MCHC (32-36) g/dL RDW Std Deviation (36.4-46.3) fL RDW Coeff of Aminah (11.5-14.5) % Plt Count (130-400) K/uL MPV (7.4-10.4) fL Sodium (136-145) mmol/L Potassium (3.5-5.1) mmol/L Chloride (98-107) mmol/L Carbon Dioxide (21-32) mmol/L Anion Gap (3-11) BUN (7-18) mg/dl Creatinine (0.6-1.4) mg/dl Est Cr Clr Drug Dosing ml/min Est GFR ( Amer) Est GFR (Non-Af Amer) BUN/Creatinine Ratio (10-20) Glucose (70-99) mg/dl Calcium (8.5-10.1) mg/dl Phosphorus (2.5-4.9) mg/dl Magnesium (1.8-2.4) mg/dl Total Bilirubin (0.2-1) mg/dl AST (15-37) U/L ALT (12-78) U/L Alkaline Phosphatase (45-117) U/L Total Protein (6.4-8.2) gm/dl Albumin (3.4-5.0) gm/dl Globulin (2.5-4.0) gm/dl Albumin/Globulin Ratio (0.9-2) Giardia Antigen Hepatitis C Ab Screen (Neg) PG Care Time/CCT Total # of Minutes Spent Total Time Spent with Patient: Total time spent is greater than 50% in coordination of care (as documented) at patient's floor/unit and/or counseling patient:
[2019-02-13] MEDS: SIMVASTATIN 20 MG TAB PO SCH (19:30)
[2019-02-14] MEDS: metroNIDAZOLE 500 MG/100 ML BAG IV SCH (02:17)
[2019-02-14] MEDS: LACTATED RINGER'S 1,000 ML IV SCH (03:53)
[2019-02-14] MEDS: CIPROFLOXACIN 400 MG/200 ML BAG IV SCH (06:10)
[2019-02-14 06:40] LABS: Hematocrit (blood only) 38.4 % (42-52); Hemoglobin 13.7 g/dL (14.0-18.0); Mean Corpuscular Hgb Conc 35.7 g/dL (32-36); Mean Corpuscular Volume 83.1 fL (80-100); Mean Platelet Volume 10.4 fL (7.4-10.4); Platelet Count 152 K/uL (130-400); RDW Coefficient of Variation 13.6 % (11.5-14.5); RDW Standard Deviation 40.9 fL (36.4-46.3); Red Blood Count 4.62 M/uL (4.7-6.1); White Blood Count 11.54 K/uL (4.8-10.8)
[2019-02-14 07:10] LABS: Albumin Level 3.2 gm/dl (3.4-5.0); BUN Creatinine Ratio 9.3 (10-20); Calcium 9.4 mg/dl (8.5-10.1); Creatinine Clr Calc Pharmacy 91.1 ml/min; Est GFR (Non-African American) 85.4; Potassium 3.4 mmol/L (3.5-5.1)
[2019-02-14 07:14] LABS: Albumin Globulin Ratio 1.1 (0.9-2); Bilirubin,Total 0.8 mg/dl (0.2-1); Total Protein 6.2 gm/dl (6.4-8.2)
[2019-02-14] MEDS: LISINOPRIL 20 MG TAB PO SCH (07:57)
[2019-02-14] MEDS ORDERED: POTASSIUM CHLORIDE 20 MEQ TABCR PO ONE (09:00)
--- NOTE | 2019-02-14 09:40 | Discharge Summary ---
Date of Service February 14, 2019 Admission HPI Per Admitting Provider This is a 63-year-old male with past medical history of HTN, HLD, polyposis, nephrolithiasis, colitis. Patient presents to our ER today with acute onset of lower abdominal cramping, abdominal pain, diarrhea x4 today, and BRBPR. He reports never having a GI bleed like this in the past. Of note the patient had a biopsy of the prostate 1 week ago, and took Levaquin x 3 days, last dose was 02/07/2019 because of prostamegaly. Patient notes that he initially had some blood in urine however does not see that any longer, but does have blood in semen. The patient denies any fevers, chills or sweats. He denies any recent sick contacts, consumption of raw or undercooked foods. He notes that certain foods do exacerbate abdominal discomfort and diarrhea as such as chocolate, small fruit like berries and processed foods; therefore he attempts to avoid these things. Patient denies consuming any of this recently. Hemoglobin is stable at 15 Potassium is significantly depressed at 2.5, IV and p.o. supplementation have been provided in the ER GI has already seen the patient as consultation in the ER. Principal Diagnosis Colitis-presumed infectious Hypokalemia Discharge Exam Constitutional well developed and well nourished; no acute distress Eyes PERRL, conjunctivae normal, anicteric sclerae ENMT external ear and nose normal, oropharynx normal Neck trachea midline, no thyromegaly Respiratory normal respiratory effort, lungs clear to auscultation Cardiovascular RRR, no murmur, no edema Gastrointestinal (Abdomen) normal bowel sounds, soft, nontender, no hepatosplenomegaly Musculoskeletal Extremities: extremities normal to inspection; no cyanosis and no clubbing Skin no rashes, warm and dry Neurologic moves all extremities and awake; no focal motor deficits Psychiatric A+Ox3, euthymic affect Discharge Data Allergies Allergy/AdvReac Type Severity Reaction Status Date / Time No Known Allergies Allergy Unverified 02/12/19 15:46 Consultations Gastroenterology Ordered Studies 02/12/19 13:39 CT abd pelvis oral and IV con Stat 02/14/19 02/14/19 Range/Units 05:35 05:35 WBC 11.54 H (4.8-10.8) K/uL RBC 4.62 L (4.7-6.1) M/uL Hgb 13.7 L (14.0-18.0) g/dL Hct 38.4 L (42-52) % MCV 83.1 (80-100) fL MCH 29.7 (25-34) pg MCHC 35.7 (32-36) g/dL RDW Std Deviation 40.9 (36.4-46.3) fL RDW Coeff of Aminah 13.6 (11.5-14.5) % Plt Count 152 (130-400) K/uL MPV 10.4 (7.4-10.4) fL Sodium 143 (136-145) mmol/L Potassium 3.4 L (3.5-5.1) mmol/L Chloride 109 H (98-107) mmol/L Carbon Dioxide 29 (21-32) mmol/L Anion Gap 6.0 (3-11) BUN 9 (7-18) mg/dl Creatinine 0.95 (0.6-1.4) mg/dl Est Cr Clr Drug Dosing 91.1 ml/min Est GFR ( Amer) 99.0 Est GFR (Non-Af Amer) 85.4 BUN/Creatinine Ratio 9.3 L (10-20) Glucose 98 (70-99) mg/dl Calcium 9.4 (8.5-10.1) mg/dl Total Bilirubin 0.8 (0.2-1) mg/dl AST 16 (15-37) U/L ALT 31 (12-78) U/L Alkaline Phosphatase 56 (45-117) U/L Total Protein 6.2 L (6.4-8.2) gm/dl Albumin 3.2 L (3.4-5.0) gm/dl Globulin 3.0 (2.5-4.0) gm/dl Albumin/Globulin Ratio 1.1 (0.9-2) Hospital Course (1) GI bleed: With rectal bleeding secondary to colitis as below and only had minimal residual BRBPR on day of discharge Hemoglobin with mild drop from 15.0 down to 13.7 and then remained stable by the next day, some of which may be hemo-dilutional from IV fluids He is hemodynamically stable Gi saw him here and said bleeding from colitis, continue to treat colitis and no acute endoscopy indicated -He should have colonoscopy in 6 to 8 weeks after his colitis is resolved (2) Colitis: Subtotal colitis seen on imaging with CT along with mild small bowel enteritis With bloody diarrhea and crampy lower abdominal pain Gastroenterology saw the patient and does not think this is consistent with is chemic colitis and is most likely infectious colitis With positive fecal leukocytes, stool culture pending but negative to date C. difficile toxin negative Most likely infectious. He did eat and multiple fast food restaurants and his recent travels Yersinia and Giardia also pending at the time of discharge -Continue Cipro and Flagyl and will complete a 10-day course -Continue to follow-up on stool culture, Yersinia and Giardia pending-PCP can call for final results after dsicharge -Appreciate GI consultation -continue low fiber which he is tolerating so far -Continue pain control as needed with acetaminophen but overall much improved -Will need colonoscopy in 6 to 8 weeks as above (3) Hypokalemia: - K+ = 2.5 upon presentation to ER and now improved but remains mildly low at 3.4 after replacement -Give potassium chloride 40 mEq p.o. x1 again on day of discharge -Follow BMP as outpt in 1 week with PCP -held HCTZ but can restart tomorrow as is now tolerating po well and was likely related to poor po intake and colitis (4) Hypertension: -BP elevated initially likely secondary to pain and is now improved -Continue lisinopril and restart hydrochlorothiazide tomorrow (5) HLD (hyperlipidemia): -Continue simvastatin (6) Nephrolithiasis: -With a remote history of such, no history of stones in the past 10 years. (7) Enlarged prostate: - History of biopsy completed 1 week ago. Pathology reports show possible atypical cells -He took Levaquin x3 days and finished last dose on Friday s/p bx -Does have some microscopic hematuria which would be expected but no gross hematuria - Follows with Dr. Goldman at [facility]-he has a follow- up visit this coming Friday when he returns to [place] (8) DVT prophylaxis: -Teds, ambulatory, no chemical prophylaxis in the setting of GI bleed Disposition-stable for dc to home, he will f/u with his PCP in [place] Total Time Total Time Spent Total Time Spent (In Minutes): >30 min Total Time Includes: Examination of the Patient, Discharge Planning and Medication Reconciliation Discharge Plan Discharge Items Patient Disposition: Home - Self-Care Reason For Visit: COLITIS,GI BLEED Discharge Diagnosis: Colitis, GI Bleeding Condition: Good Discharge Goals: Decrease discomfort, Diagnostic testing, Improve disease control, Learn about illness and Therapeutic intervention Activity: As commented below Activity Comment: Remain out of work until 02/17/19 Lifting: Gradually increase as tolerated Bathing: No limitations Exercise/Sports: Gradually increase as tolerated Driving/Machine Use: Resume 3 days after discharge Non-emergency contact: Primary Care Provider and [employer] Call non-emergency contact if: you have any medication questions, your symptoms worsen, your pain is not controlled, your pain is worsening, your pain is unusual for you, your pain is concerning for you and your temperature is above 100.5 Follow-up/Referrals: PCP,NO [Physician] - Diet: Low Fiber Diet Comment: low fiber x 2 weeks and then back to regular diet Addtl Provider Instructions: Please finish out the course of antibiotics for your colitis. The stool culture and studies were still pending at the time of discharge--> your primary care doctor can follow up on these for you. Please avoid taking NSAIDs (ibuprofen, Aleve, etc.) or aspirin-containing products until after your bleeding has completely resolved. You should follow up with your [facility] [facility] [employer] to discuss the timing of a repeat colonoscopy preferably at least 6 weeks from now. Please have your PCP check your potassium levels in about 1 week. Prescriptions: New acetaminophen [Mapap (acetaminophen)] 325 mg Tablet 650 mg PO Q4H PRN (Reason: pain) Qty: 30 RF: 0 ciprofloxacin HCl [Cipro] 500 mg tablet 500 mg PO BID Qty: 16 RF: 0 metronidazole [Flagyl] 500 mg tablet 500 mg PO Q8H Qty: 24 RF: 0 Continued lisinopril 20 mg tablet 20 mg PO QAM RF: 0 simvastatin 20 mg tablet 20 mg PO HS RF: 0 hydrochlorothiazide 25 mg tablet 25 mg PO QAM Qty: 0 RF: 0 Discontinued levofloxacin 500 mg tablet 500 mg PO QAM RF: 0 Stand-Alone Forms: Call Back Authorization, [facility] Discharge Orders: Discharge Order (Routine); Ordered 02/14/19 Ordered By: Orly Contreras Admission Data Admit Date/Time: 02/12/19 17:11 Attending Provider: Orly Contreras Admit Provider: Rodrigo Berry Providers: Rodrigo Berry ; Samira Duran Service: Telemetry Other Pending Studies at Discharge: Yes (Stool culture, Yersinia and Giardia)
--- NOTE | 2019-02-14 09:45 | Gastroenterology Progress Note ---
Date of Service February 14, 2019 Supervising Physician Co-Signing Physician Notes 63 yo male admitted with hematochezia, imaging suggestive of subtotal colitis, thought to be infectious colitis, clinically improving. Would continue abx for infectious colitis. Stool culture and c diff are negative thus far, stool wbc + suggestive of infectious cause. Outpatient c -scope through his regular provider in [place] in 4-8 weeks. He can take supplemental K for now once daily (20-40 mg) for the next week until he sees his GI provider. OK to dc home from a GI perspective. Subjective Patient feeling much better today. Informed of stool culture results. No other complaints- bloody bowel movements are slowing down. with him and aware of the culture results. Review of Systems Review of Systems: All systems reviewed & are unremarkable except as noted in HPI & below Physical Exam Physical Exam: Lying in bed in nad Respiratory: Normal excusion of lungs Gastrointestinal (Abdomen): normal bowel sounds, soft, nontender, no hepatosplenomegaly Skin: no rashes, warm and dry Neurologic: PERRL, EOMI, accommodation nl, no face palsy, no dysarthria Results & Data Vital Signs (Past 12 Hours) Vital Signs Temp Pulse Pulse Resp BP BP Pulse Ox 02/14/19 09:35 36.8 C 46 L 18 136/69 97 02/14/19 07:48 51 L 02/14/19 07:06 36.8 C 46 L 18 130/62 97 02/14/19 04:27 36.9 C 44 L 18 120/51 L 98 02/14/19 00:14 37.1 C 51 L 18 118/53 L 98
[2019-02-16 06:29] LABS: Comment DNR; Organism #1 DNR; Source OTHER-STOOL
== END 2019-02-14 09:52 | disposition home or self-care (01) | DRG 392 ==
LOC: ED 13:18 → SUATTDRO 17:11 → 2E 17:11